=== PATIENT | male | born 1980 | race Caucasian/White ===

== ENCOUNTER 2018-11-01 12:12 | Emergency (ER) | payer MEDICAID ==
[~2018-11-01] VITALS: Ht 172.7 cm; Wt 72.6 kg
[~2018-11-01 12:12] MED LIST: AMOX1XR PO; CEPH500 PO; CLIN300 PO; CYCL10 PO; DOXY100 PO; HYDACE5 PO; MUPI2TO TOP; NAPR500 PO; NAPR550 PO; OXYACE5T PO; OXYACE7.5T PO; RXNAPNA550 PO; RXOXYACE PO; SULTRIDS PO; TRAM50 PO
[2018-11-01] MEDS ORDERED: Veetids 500500 MG PO (15:50)
== END 2018-11-01 15:56 | disposition home or self-care (01) ==
LOC: ER 12:12
DX: K04.7 Periapical abscess without sinus (principal); F17.200 Nicotine dependence, unspecified, uncomplicated
CPT/HCPCS: 99282

== ENCOUNTER 2020-05-13 21:07 | Emergency (ER) | payer SELFPAY ==
[~2020-05-13] VITALS: Ht 172.7 cm; Wt 71.7 kg
[~2020-05-13 21:07] MED LIST changes: +Veetids 500500 MG PO
== END 2020-05-13 23:16 | disposition home or self-care (01) ==
LOC: ER 21:07
DX: H61.23 Impacted cerumen, bilateral (principal); F17.200 Nicotine dependence, unspecified, uncomplicated
CPT/HCPCS: 99282

== ENCOUNTER 2021-03-22 03:56 | Inpatient (IN) | payer OTHER ==
[~2021-03-22] VITALS: Ht 172.7 cm; Wt 69.9 kg
[2021-03-22 05:19] LABS: BASOPHILS ABSOLUTE AUTO 0.03 K/mm3 (0.00-0.23); BASOPHILS PERCENT AUTO 0 % (0-2); EOSINOPHILS ABSOLUTE AUTO 0.07 K/mm3 (0.00-0.68); EOSINOPHILS PERCENT AUTO 1 % (0-6); Hematocrit 38.1 % (37.0-53.0); Hemoglobin 13.1 g/dL (13.5-17.5); IMMATURE GRAN ABSOLUTE AUTO 0.02 K/mm3 (0.00-0.10); IMMATURE GRAN PERCENT AUTO 0 % (0-1); LYMPHOCYTES PERCENT AUTO 11 % (21-46); MONOCYTES ABSOLUTE AUTO 0.77 K/mm3 (0.16-1.47); MONOCYTES PERCENT AUTO 11 % (4-13); Mean Corpuscular HGB 32.5 pg (26.0-34.0); Mean Corpuscular HGB Conc 34.4 g/dL (31.5-36.5); Mean Corpuscular Volume 95 fL (80-100); Mean Platelet Volume 9.4 fL (9.1-12.4); NEUTROPHILS ABSOLUTE AUTO 5.49 K/mm3 (1.96-9.15); NEUTROPHILS PERCENT AUTO 77 % (41-73); Platelet Count 205 K/mm3 (150-400); RDW Standard Deviation 42.1 fL (35.1-46.3); Red Blood Cell Count 4.03 M/mm3 (4.30-5.90); White Blood Cell Count 7.18 K/mm3 (4.00-11.30)
[2021-03-22 05:20] LABS: Anion Gap 5 mmol/L (6-16); Blood Urea Nitrogen 17 mg/dL (8-24); Bun/Creatinine Ratio 22.9 (12.0-20.0); CO2, Blood 28 mmol/L (21-32); Calcium, Blood 8.9 mg/dL (8.5-10.1); Chloride, Blood 106 mmol/L (98-108); Creatinine, Blood 0.74 mg/dL (0.60-1.20); Glomerular Filtration Rate >60 (60-); Glucose, Blood 118 mg/dL (70-99); Potassium, Blood 3.7 mmol/L (3.5-5.5); Sodium, Blood 139 mmol/L (136-145)
[2021-03-22 06:25] LABS: Influenza A, PCR NEGATIVE (NEGATIVE); Influenza B, PCR NEGATIVE (NEGATIVE); Resp Syncytial Virus, PCR NEGATIVE (NEGATIVE)
[2021-03-22 07:15] LABS: SARS-Cov-2 (COVID-19) PCR, MMC POSITIVE (NEGATIVE)
--- NOTE | 2021-03-22 13:47 | NUR ---
DOWN TO CT AT THIS TIME VIA [employer]. PATIENT JUST VOID 400CC NIKKIE URINE. URINE SAMPLE SENT TO LAB FOR TOXICOLOGY AT THIS TIME. PATIENT HAS BEEN NPO.
--- NOTE | 2021-03-22 14:12 | NUR ---
BACK TO ROOM FROM CT
[2021-03-22 14:19] LABS: U Cannabinoids Screen DETECTED
[2021-03-22 14:20] LABS: U Amphetamine Screen DETECTED; U Barbituate Screen Not Detected; U Benzodiazapine Screen Not Detected; U Buprenorphine Screen Not Detected; U Cocaine Screen Not Detected; U Methadone Screen Not Detected; U Methamphetamine Screen DETECTED; U Opiates Screen Not Detected; U Oxycodone Screen DETECTED; U Phencyclidine Screen Not Detected; U Propoxyphene Screen Not Detected
--- NOTE | 2021-03-22 14:49 | NUR ---
SURGERY CREW HERE TO TAKE PT. DOWN TO SURGERY, VIA IV[facility]NA
--- NOTE | 2021-03-22 15:11 | NUR ---
03/22/21 1511 Irina Whitman NO PREOP ANTIBIOTICS PATIENT IS ON SCHEDULED ANTIBIOTICS PER .
--- NOTE | 2021-03-22 18:08 | NUR ---
PT. BACK TO ROOM AT 1630. DENIES PAIN. VSS, SATS 100% RA. PAYAL WRAPPED AROUND R HAND OVER DRSG. W PACKING. OFFER TO ELEVATE, PT. DECLINES. OFFER FOOD AND PT. DID EAT DINNER. CONT. TO DENY PAIN, RESTING. INSTRUCTED PT. TO CALL FOR NURSE IF NEED TO GET OOB FIRST TIME OR IF ATTACHED TO IV.
[2021-03-23 06:05] LABS: Vancomycin, Trough 11.2 ug/mL (5.0-10.0)
--- NOTE | 2021-03-23 06:28 | NUR ---
SHIFT SUMMARY: ALERT AND ORIENTED. MEDICATED WITH TRAMODOL X'S 1 FOR PAIN MANAGEMENT, EFFETIVE RELIEF. SLEPT THROUGH NIGHT, DENIED FURTHER PAIN OR DISCOMFORT TO RIGHT HAND. DRESSING C/D/I. TOLERATING REGULAR DIET AND FLUIDS, VOIDING WITHOUT DIFFICULTY. SAFETY MAINTAINED, CALL TREVIZO IN REACH.
[2021-03-23 08:53] LABS: Albumin, Blood 2.8 g/dL (3.4-5.0); Anion Gap 6 mmol/L (6-16); Blood Urea Nitrogen 23 mg/dL (8-24); Bun/Creatinine Ratio 28.4 (12.0-20.0); CO2, Blood 27 mmol/L (21-32); Calcium, Blood 8.7 mg/dL (8.5-10.1); Chloride, Blood 105 mmol/L (98-108); Creatinine, Blood 0.81 mg/dL (0.60-1.20); Glomerular Filtration Rate >60 (60-); Glucose, Blood 154 mg/dL (70-99); Phosphorus, Blood 3.4 mg/dL (2.5-4.9); Potassium, Blood 4.5 mmol/L (3.5-5.5); Sodium, Blood 138 mmol/L (136-145)
[2021-03-23 09:19] LABS: Hematocrit 38.1 % (37.0-53.0); Hemoglobin 12.9 g/dL (13.5-17.5); Mean Corpuscular HGB 32.8 pg (26.0-34.0); Mean Corpuscular HGB Conc 33.9 g/dL (31.5-36.5); Mean Corpuscular Volume 97 fL (80-100); Mean Platelet Volume 10.4 fL (9.1-12.4); Platelet Count 241 K/mm3 (150-400); RDW Coefficient Variation 11.9 % (11.7-14.2); RDW Standard Deviation 42.6 fL (35.1-46.3); Red Blood Cell Count 3.93 M/mm3 (4.30-5.90); White Blood Cell Count 8.78 K/mm3 (4.00-11.30)
--- NOTE | 2021-03-23 17:23 | NUR ---
SHIFT SUMMARY POD 2 I&D R INDEX [id number]. PT IND IN ROOM. PAIN MANAGED PER EMAR, DENIES PAIN EXCEPT DURING DRESSING CHANGES. PLAN IS FOR PATIENT TO DISCHARGE HOME ON 14 DAYS ANTIBIOTICS AND DAILY DRESSING CHANGES. CURRENTLY AWAITING SENSATIVITY RESULTS.
[2021-03-24 04:40] LABS: Vancomycin, Trough 11.8 ug/mL (5.0-10.0)
--- NOTE | 2021-03-24 06:08 | NUR ---
SHIFT SUMMARY: MEDICATED X'S 2 WITH TORADOL DUE TO RIGHT HAND PAIN, EFFECTIVE RELIEF. DENIES NUMBNESS/TINGLING, ABLE TO WIGGLE FINGERS, CAP REFILL LESS THAN 2 SECONDS. DRESSING C/D/I TO RIGHT HAND. SLEPT WELL THROUGH NIGHT. SAFETY MAINTAINED, CALL TRE[facility] IN REACH.
--- NOTE | 2021-03-24 12:43 | NUR ---
AMA PT INCREASINGLY ANXIOUS, REPORTED HE IS UNABLE TO HANDLE BEING STUCK IN A ROOM. SPOKE WITH PT REGARDING RISKS OF LEAVING INCLUDING WORSENING INFECTION, SEPSIS, AND POSSIBLE LOSS OF LIMB. ASKED PT TO WAIT UNTIL MICROBIOLOGY RESULTS WERE POSTED TODAY. HE STATED HE WAS UNABLE TO DO THIS R/T HIS ANXIETY AND SIGNED HIS AMA FORM. PT REMOVED IV PRIOR TO DISCHARGE AND SHOWED THIS RN. CATHETER TIP INTACT. ALL BELONGINGS SENT WITH PATIENT, REINFORCED DR. FERRIS WOUND CARE ORDERS AND NEED FOR DAILY DRESSING CHANGES WITH FOLLOW UP. PT STATES UNDERSTANDING AND APOLIGIZED FOR NOT BEING ABLE TO STAY. SINCE LEAVING MICRO RESULTS POSTED ATTEMPTED TO CALL PATIENTS CELL PHONE TO GET HIM PRESCRIPTION FOR ABX. NO ANSWER AT THIS TIME. MESSAGE LEFT. PHONE NUMBER PT LEFT ON BOARD IS .
--- NOTE | 2021-03-24 16:45 | NUR ---
PT BACK TO [employer]NA[employer] PRESCRIPTIONS FOR ANTIBIOTICS FROM DR. ANDRE. BOTH GIVEN TO PATIENT. REINFORCED ORDERS FOR WOUND CARE AND FOLLOW UP AGAIN WITH PATIENT. HE WAS VERY RECEPTIVE.
== END 2021-03-24 12:30 | disposition home or self-care (01) | DRG 579 ==
LOC: ER 03:56 → SURS 03:57
PROVIDERS: Emergency Medicine; Internal Medicine; Orthopaedic Surgery; Pharmacist; ADMIT Family Medicine
PROC: 0JBJ0ZZ Excision of Right Hand Subcutaneous Tissue and Fascia, Open Approach (ICD-10-PCS; principal; 2021-03-23)
DX: L03.011 Cellulitis of right finger (principal); U07.1 COVID-19; M13.841 Other specified arthritis, right hand; F12.90 Cannabis use, unspecified, uncomplicated; F11.90 Opioid use, unspecified, uncomplicated; A49.02 Methicillin resistant Staphylococcus aureus infection, unspecified site; Z59.00 Homelessness unspecified; M65.9 Synovitis and tenosynovitis, unspecified
CPT/HCPCS: 0241U; 36415; 73140; 73201; 80048; 80069; 80202; 83605; 85025; 85027; 86140; 87040; 87070; 87075; 87077; 87147; 87184; 87186; 87205; 94762; 96365; 96375; 99284-25; A9270; J0696; J1885; J2405; J2704; J3010; J3370; J7030; J7050; Q9967